=== PATIENT | male | born 1955 | race Caucasian/White ===

== ENCOUNTER 2020-01-11 06:57 | Emergency (ER) | payer MEDICARE ==
[~2020-01-11] VITALS: Ht 175.3 cm; Wt 112.0 kg
[2020-01-11] MEDS ORDERED: IV NORMAL SALINE 1000ML BAG 1,000 ML IV SCH (07:25)
[2020-01-11] MEDS ORDERED: KETOROLAC 30 MG/ML VIAL. IVP ONE (07:30)
[2020-01-11] MEDS ORDERED: ONDANSETRON PF 4 MG/2 ML VIAL. IVP ONE (07:30)
[2020-01-11 07:54] LABS: CALCIUM 9.6 mg/dL (8.5-10.1); CREATININE 1.2 mg/dL (0.7-1.3); GFR 60.6; POTASSIUM 3.9 mmol/L (3.5-5.1)
[2020-01-11 07:59] LABS: ALBUMIN 3.7 g/dL (3.4-5.0); TOTAL BILIRUBIN 0.9 mg/dL (0.2-1.0); TOTAL PROTEIN 7.5 g/dL (6.4-8.2)
[2020-01-11 08:01] LABS: BASO # 0.1 x10^3/uL (0.0-0.2); BASO % 1 % (0-3); EOS % 0 % (0-3); HEMOGLOBIN 15.8 g/dL (13.0-17.5); LYMPH # 1.5 x10^3/uL (1.0-4.8); LYMPH % 9 % (24-48); MEAN CORPUSCULAR HEMOGLOBIN 29 pg (25-35); MEAN CORPUSCULAR HGB CONC 32 g/dL (31-37); MEAN CORPUSCULAR VOLUME 89 fL (79-100); MONO # 0.7 x10^3/uL (0.0-1.1); MONO % 5 % (0-9); NEUT % 86 % (31-73); PLATELET COUNT 242 x10^3/uL (140-400); RED BLOOD COUNT 5.52 x10^6/uL (4.30-5.70); RED CELL DISTRIBUTION WIDTH 15.9 % (11.5-14.5); WHITE BLOOD COUNT 16.3 x10^3/uL (4.0-11.0)
--- NOTE | 2020-01-11 08:09 | PHYS DOC ---
Past Medical History Past Medical History: A-Fib, Asthma, Diabetes-Type II, High Cholesterol, Hypertension, Kidney Stone Past Surgical History: Other Additional Past Surgical Histo: L Rotator Cuff, HERNIA, EYE SOCKET REPAIR Smoking Status: Never Smoker Alcohol Use: Rarely Drug Use: None General Adult EDM: Chief Complaint: ABDOMINAL PAIN HPI: HPI: Patient is a 65 year old male with history of hypertension, dyslipidemia, diabetes mellitus, atrial fibrillation, kidney stone who presents with complaining of "I have a kidney stone". Patient complaining of sudden onset of left flank pain with radiation to left lower quadrant and suprapubic area since 0300 AM as constant sharp pain that getting better and worse. Patient rated his pain 10/10 and complaining of nausea without vomiting, fever and chills, diarrhea and constipation, dysuria. Patient complaining of dark-colored urine and he states he had the same pain with previous episode of kidney stone. Patient states he worked outside and vomited yesterday and had one episode of loose stool last night. Review of Systems: Review of Systems: Constitutional: Denies fever or chills. [] Eyes: Denies change in visual acuity. [] HENT: Denies nasal congestion or sore throat. [] Respiratory: Denies cough or shortness of breath. [] Cardiovascular: Denies chest pain or edema. [] GI: Reports abdominal pain, nausea, denies vomiting, bloody stools or diarrhea. [] : Denies dysuria. [] Musculoskeletal: Denies back pain or joint pain. [] Integument: Denies rash. [] Neurologic: Denies headache, focal weakness or sensory changes. [] Endocrine: Denies polyuria or polydipsia. [] Lymphatic: Denies swollen glands. [] Psychiatric: Denies depression or anxiety. [] Heart Score: Risk Factors: Risk Factors: DM, Current or recent (<one month) smoker, HTN, HLP, family history of CAD, obesity. Risk Scores: Score 0 - 3: 2.5% MACE over next 6 weeks - Discharge Home Score 4 - 6: 20.3% MACE over next 6 weeks - Admit for Clinical Observation Score 7 - 10: 72.7% MACE over next 6 weeks - Early Invasive Strategies Current Medications: Current Medications Medications (Trade) Dose Ordered Sig/Filippo Start Time Stop Time Status Last Admin Dose Admin Ketorolac Tromethamine (Toradol 30mg Vial) 30 mg 1X ONCE 01/11/20 07:30 01/11/20 07:37 DC 01/11/20 07:46 30 MG Ondansetron HCl (Zofran) 4 mg 1X ONCE 01/11/20 07:30 01/11/20 07:37 DC 01/11/20 07:46 4 MG Sodium Chloride 1,000 ml @ 1,000 mls/hr Q1H 01/11/20 07:25 01/11/20 08:24 01/11/20 07:45 1,000 MLS/HR Allergies: Allergies: Allergies Coded Allergies Type Severity Reaction Last Updated Verified No Known Drug Allergies 02/09/15 No Physical Exam: PE: Constitutional: Well developed, well nourished, mild distress, non-toxic appearance. [] HENT: Normocephalic, atraumatic. Eyes: PERRLA, EOMI, conjunctiva normal, no discharge. [] Neck: Normal range of motion, no tenderness, supple, no stridor. [] Cardiovascular:Heart rate regular rhythm, no murmur [] Lungs & Thorax: Bilateral breath sounds clear to auscultation [] Abdomen: Bowel sounds normal, soft, left lower quadrant guarding, no tenderness, no masses, no pulsatile masses. [] Skin: Warm, dry, no erythema, no rash. [] Back: No tenderness, no CVA tenderness. [] Extremities: No tenderness, no cyanosis, no clubbing, ROM intact, no edema. [] Neurologic: Alert and oriented X 3, no focal deficits noted. [] Psychologic: Affect normal, judgement normal, mood normal. [] Current Patient Data: Labs: Laboratory Tests Test 01/11/20 07:20 White Blood Count 16.3 x10^3/uL (4.0-11.0) H Red Blood Count 5.52 x10^6/uL (4.30-5.70) Hemoglobin 15.8 g/dL (13.0-17.5) Hematocrit 49.0 % (39.0-53.0) Mean Corpuscular Volume 89 fL (79-100) Mean Corpuscular Hemoglobin 29 pg (25-35) Mean Corpuscular Hemoglobin Concent 32 g/dL (31-37) Red Cell Distribution Width 15.9 % (11.5-14.5) H Platelet Count 242 x10^3/uL (140-400) Neutrophils (%) (Auto) 86 % (31-73) H Lymphocytes (%) (Auto) 9 % (24-48) L Monocytes (%) (Auto) 5 % (0-9) Eosinophils (%) (Auto) 0 % (0-3) Basophils (%) (Auto) 1 % (0-3) Neutrophils # (Auto) 14.0 x10^3/uL (1.8-7.7) H Lymphocytes # (Auto) 1.5 x10^3/uL (1.0-4.8) Monocytes # (Auto) 0.7 x10^3/uL (0.0-1.1) Eosinophils # (Auto) 0.0 x10^3/uL (0.0-0.7) Basophils # (Auto) 0.1 x10^3/uL (0.0-0.2) Platelet Estimate Pending Sodium Level 139 mmol/L (136-145) Potassium Level 3.9 mmol/L (3.5-5.1) Chloride Level 102 mmol/L (98-107) Carbon Dioxide Level 26 mmol/L (21-32) Anion Gap 11 (6-14) Blood Urea Nitrogen 25 mg/dL (8-26) Creatinine 1.2 mg/dL (0.7-1.3) Estimated GFR (Cockcroft-Gault) 60.6 BUN/Creatinine Ratio 21 (6-20) H Glucose Level 167 mg/dL (70-99) H Calcium Level 9.6 mg/dL (8.5-10.1) Total Bilirubin 0.9 mg/dL (0.2-1.0) Aspartate Amino Transferase (AST) 16 U/L (15-37) Alanine Aminotransferase (ALT) 16 U/L (16-63) Alkaline Phosphatase 71 U/L (46-116) Total Protein 7.5 g/dL (6.4-8.2) Albumin 3.7 g/dL (3.4-5.0) Albumin/Globulin Ratio 1.0 (1.0-1.7) Lipase 126 U/L (73-393) Laboratory Tests 01/11/20 07:20 Laboratory Tests 01/11/20 07:20 Vital Signs: Vital Signs Date Time Temp Pulse Resp B/P (MAP) Pulse Ox O2 Delivery O2 Flow Rate FiO2 01/11/20 07:10 97.4 85 18 164/88 (113) 97 Room Air 97.4 EKG: EKG: [] Radiology/Procedures: Radiology/Procedures: [facility] [address] [place] [address] IMAGING REPORT Signed PATIENT: MORENA FIORE ACCOUNT: [id number] : 1955 LOCATION: ER AGE: 65 SEX: M EXAM STATUS: REG ER ORD. PHYSICIAN: AXEL PERALTA MD REASON: Left flank pain HX OF LEFT SIDED KIDNEY STONES PROCEDURE: CT ABDOMEN PELVIS WO CONTRAST CT ABDOMEN PELVIS WO CONTRAST History: Left flank pain. Technique: Noncontrast examination of the abdomen and pelvis. Coronal and sagittal reconstructions were performed. Exposure: One or more of the following individualized dose reduction techniques were utilized for this examination: 1. Automated exposure control 2. Adjustment of the mA and/or kV according to patient size 3. Use of iterative reconstruction technique. Comparison: None Findings: Lower chest: No consolidation or pleural effusion. Abdomen and pelvis: The liver, spleen, pancreas and gallbladder are unremarkable. No biliary ductal dilatation. 1.2 x 1.0 cm right adrenal nodule with decreased Hounsfield units compatible with adrenal adenoma and peripheral calcification. 1.5 x 1.4 cm left adrenal nodule with decreased Hounsfield units compatible with adrenal adenoma. 0.6 x 0.4 cm left proximal ureteral obstructing calculus contributing to mild hydronephrosis. Left perinephric and periureteral fat stranding. Additional nonobstructing intrarenal calculus measures 0.7 cm. No right hydronephrosis. Incidentally noted right superior exophytic renal cyst measures 3.1 x 3.0 cm. No follow-up imaging is recommended per consensus recommendations based on imaging criteria for the cyst. Decompressed urinary bladder. Colonic diverticulosis. Normal appendix. No evidence of bowel obstruction. Right lateral abdominal wall intramuscular lipoma. Mild atheromatous plaque throughout the nonaneurysmal abdominal aorta and branch vessels. No pathologic lymphadenopathy. No ascites. Bones: Grade 1 anterolisthesis L4 on L5 due to chronic bilateral L5 spondylolysis. Multilevel lumbar spondylosis most prominent L4-5. Impression: 1. 6 mm left proximal ureteral obstructing calculus contributing to mild hydronephrosis with perinephric/periureteral fat stranding. 2. Additional nonobstructing left intrarenal calculus. 3. Bilateral adrenal adenomas. No follow-up imaging is recommended per consensus recommendations based on imaging criteria. Electronically signed by: Phuc Fregoso DO (01/11/2020 8:19 AM) [id number] Course & Med Decision Making: Course & Med Decision Making Pertinent Labs and Imaging studies reviewed. (See chart for details) Evaluation of patient inertial 65-year-old male patient with history of previous episode of kidney stone presented with complaining of left flank pain and nausea. Patient had a stable vital sign and treated with IV fluids, Zofran, Toradol with improvement of his pain. CT showed 6 mm stone in the left proximal ureter. Labs showed leukocytosis and UTI and patient treated with Rocephin in ER. Patient was advised to increase fluid intake and strain all of his urine and follow-up with urology at [facility]. I've spoken with the patient and/or caregivers. I've explained the patient's condition, diagnosis and treatment plan based on information available to me at this time. I've answered the patient's and/or caregivers questions and addressed any concerns. The patient and/or caregivers have a good understanding the patient's diagnosis, condition and treatment plan as can be expected at this point. Vital signs have been stabilized. The patient's condition is stable for discharge from the emergency department. The patient will pursue further outpatient evaluation with her primary care provider or other designated consulting physician as outlined in the discharge instructions. Patient and/or caregivers are agreeable to this plan of care and follow-up instructions have been explained in detail. The patient and/or caregivers have received these instructions in written format and expressed understanding of these discharge instructions. The patient and her caregivers are aware that if any significant change in condition or worsening of symptoms should prompt him to immediately return to this of the closest emergency department. If an emergent department is not readily available I would encourage him to call 911. Lisa Disclaimer: Lisa Disclaimer: This electronic medical record was generated, in whole or in part, using a voice recognition dictation system. Departure Departure Impression: Primary Impression: Renal colic on left side Additional Impressions: Ureterolithiasis Urinary tract infection Qualified Codes: N39.0 - Urinary tract infection, site not specified Disposition: HOME, SELF-CARE (At 09) Condition: IMPROVED Referrals: JAYSHREE DENNIS (PCP) Patient Instructions: Diet for Kidney Stones, Kidney Stones Additional Instructions: Drink plenty of liquids Follow-up with your primary care physician in 3-5 days Return to ER if not getting better Strain all of your urine Follow-up with a urologist physician at [facility] Thank you for visiting [facility]. We appreciate you trusting us with your care. If any additional problems come up don't hesitate to return to visit us. Please follow up with your primary care provider so they can plan additional care if needed and know about the problem that you had. If symptoms worsen come back to the Emergency Department. Any concerning symptoms that start such as chest pain, shortness of air, weakness or numbness on one side of the b kacey, running high fevers or any other concerning symptoms return to the ER. Scripts Hydrocodone/Apap 5-325 (NORCO 5-325 TABLET) 1 Each Tablet 1 TAB PO PRN Q6HRS PRN for PAIN, #20 TAB 0 Refills Prov: AXEL PERALTA MD 01/11/20 Tamsulosin Hcl (FLOMAX) 0.4 Mg Cap.er.24h 1 CAP PO DAILY, #14 CAP 0 Refills Prov: AXEL PERALTA MD 01/11/20 Ciprofloxacin Hcl (CIPRO) 250 Mg Tablet 1 TAB PO BID for infection, #14 TAB Prov: AXEL PERALTA MD 01/11/20 AXEL PERALTA MD Jan 11, 2020 08:09
--- NOTE | 2020-01-11 08:22 | RAD ---
CT ABDOMEN PELVIS WO CONTRAST History: Left flank pain. Technique: Noncontrast examination of the abdomen and pelvis. Coronal and sagittal reconstructions were performed. Exposure: One or more of the following individualized dose reduction techniques were utilized for this examination: 1. Automated exposure control 2. Adjustment of the mA and/or kV according to patient size 3. Use of iterative reconstruction technique. Comparison: None Findings: Lower chest: No consolidation or pleural effusion. Abdomen and pelvis: The liver, spleen, pancreas and gallbladder are unremarkable. No biliary ductal dilatation. 1.2 x 1.0 cm right adrenal nodule with decreased Hounsfield units compatible with adrenal adenoma and peripheral calcification. 1.5 x 1.4 cm left adrenal nodule with decreased Hounsfield units compatible with adrenal adenoma. 0.6 x 0.4 cm left proximal ureteral obstructing calculus contributing to mild hydronephrosis. Left perinephric and periureteral fat stranding. Additional nonobstructing intrarenal calculus measures 0.7 cm. No right hydronephrosis. Incidentally noted right superior exophytic renal cyst measures 3.1 x 3.0 cm. No follow-up imaging is recommended per consensus recommendations based on imaging criteria for the cyst. Decompressed urinary bladder. Colonic diverticulosis. Normal appendix. No evidence of bowel obstruction. Right lateral abdominal wall intramuscular lipoma. Mild atheromatous plaque throughout the nonaneurysmal abdominal aorta and branch vessels. No pathologic lymphadenopathy. No ascites. Bones: Grade 1 anterolisthesis L4 on L5 due to chronic bilateral L5 spondylolysis. Multilevel lumbar spondylosis most prominent L4-5. Impression: 1. 6 mm left proximal ureteral obstructing calculus contributing to mild hydronephrosis with perinephric/periureteral fat stranding. 2. Additional nonobstructing left intrarenal calculus. 3. Bilateral adrenal adenomas. No follow-up imaging is recommended per consensus recommendations based on imaging criteria. Electronically signed by: Phuc Fregoso DO (01/11/2020 8:19 AM) [id number]
[2020-01-11 08:36] LABS: % BANDS 1 % (0-9); % BASOS 1 % (0-3); % LYMPHS 13 % (24-48); % MONOS 3 % (0-10); % SEGS 82 % (35-66)
[2020-01-11 08:37] LABS: PLT ESTIMATE ADEQUATE (ADEQUATE)
[2020-01-11 08:52] LABS: BILIRUBIN,URINE NEGATIVE (NEG); CLARITY,URINE HAZY; COLOR,URINE AMBER; NITRITE,URINE POSITIVE (NEG); PROTEIN,URINE 30 mg/dL (NEG-TRACE); UROBILINOGEN,URINE 0.2 mg/dL (0.2 mg/dL); WBC,URINE >40 /HPF (0-4)
[2020-01-11 08:53] LABS: BACTERIA,URINE MANY /HPF (0-FEW); HYALINE CASTS, URINE FEW /HPF; SQUAMOUS EPITHELIAL CELL,UR OCC /LPF
[2020-01-11 09:00] VITALS: BP 142/86
[2020-01-11] MEDS ORDERED: cefTRIAXone IV Push 1 GM VIAL. IVP ONE (09:00)
[2020-01-11] MEDS ORDERED: HYDR-3164 PO (09:08)
[2020-01-11] MEDS ORDERED: TAMS0.4C97 PO (09:08)
[2020-01-11] MEDS ORDERED: CIPR250T30 PO (09:08)
== END 2020-01-11 09:18 | disposition home or self-care (01) ==
LOC: ER 06:57
DX: N13.2 Hydronephrosis with renal and ureteral calculous obstruction (principal); N39.0 Urinary tract infection, site not specified; R19.7 Diarrhea, unspecified; N23 Unspecified renal colic; I48.20 Chronic atrial fibrillation, unspecified; J45.909 Unspecified asthma, uncomplicated; E11.9 Type 2 diabetes mellitus without complications; E78.00 Pure hypercholesterolemia, unspecified; I10 Essential (primary) hypertension; Z87.442 Personal history of urinary calculi; Z98.890 Other specified postprocedural states
CPT/HCPCS: 36415; 74176; 80053; 81001; 83690; 85007; 85025; 87086; 87186; 96361; 96374; 96375; 99285; J0696; J1885; J2405; J7030

== ENCOUNTER 2021-01-12 11:25 | Emergency (ER) | payer MEDICARE ==
[~2021-01-12] VITALS: Ht 175.3 cm; Wt 112.7 kg
[~2021-01-12 11:25] MED LIST: CIPR250T30 PO; HYDR-3164 PO; TAMS0.4C97 PO
--- NOTE | 2021-01-12 12:00 | ED.ADGEN ---
Past Medical History Past Medical History: A-Fib, Asthma, Diabetes-Type II, High Cholesterol, Hypertension, Kidney Stone Past Surgical History: Other Additional Past Surgical Histo: L Rotator Cuff, HERNIA, EYE SOCKET REPAIR Smoking Status: Never Smoker Alcohol Use: Rarely Drug Use: None General Adult EDM: Chief Complaint: MULTIPLE COMPLAINTS HPI: HPI: Patient is a 66 year old male coming in for multiple complaints. Patient states that he has had swelling in bilateral hands and lower forearms for 2 days. Patient states he had lab drawn the day prior to the swelling. He states he was having his A1c checked and initially had stuck in his right AC when they are able to get blood, was able to draw blood from his left AC. Patient states there was only 1 attempt on the right and one accompanying left. He states there is no prolonged tourniquet time. Patient denies any swelling of lower extremities. Patient also states he has had foul-smelling urine for months. Was told to drink more water which she has been doing. Has noticed some increased frequency in urination. This morning noted blood in his urine, denies any clots. Patient states he has a history of a known kidney stone in his kidney has not had any problems with it. Denies any fevers, vomiting, diarrhea. States he has normal p.o. intake. Has history of diabetes, but has not been checking his blood sugars. Review of Systems: Review of Systems: All other systems within normal limits except for as noted in the HPI Current Medications: Current Medications Medications (Trade) Dose Ordered Sig/Filippo Start Time Stop Time Status Last Admin Dose Admin Ceftriaxone Sodium (Rocephin) 1 gm 1X ONCE 01/12/21 13:30 01/12/21 13:31 DC 01/12/21 14:00 1 GM Ondansetron HCl (Zofran) 4 mg 1X ONCE 01/12/21 14:15 01/12/21 14:16 DC 01/12/21 14:09 4 MG Allergies: Allergies: Allergies Coded Allergies Type Severity Reaction Last Updated Verified No Known Drug Allergies 02/09/15 No Physical Exam: PE: Constitutional: Well developed, well nourished, no acute distress, non-toxic appearance. [] HENT: Normocephalic, atraumatic, bilateral external ears normal, nose normal. [] Eyes: PERRLA, conjunctiva normal, no discharge. [] Neck: No rigidity, supple, no stridor. [] Cardiovascular: Regular rate and rhythm, 2-second cap refill [] Lungs & Thorax: Non labored symmetric respirations, no tachypnea or respiratory distress [] Abdomen: Soft, nondistended. Skin: Warm, dry, no erythema, no rash. [] Back: Unremarkable Extremities: No deformities, range of motion grossly intact, no lower extremity edema. Bilateral hands and distal forearm swelling, hematoma in left AC, tenderness on ulnar side near her wrist. [] Neurologic: Alert and oriented X 3, no focal deficits noted. [] Psychologic: Affect normal, judgement normal, mood normal. [] Current Patient Data: Labs: Laboratory Tests Test 01/12/21 11:38 01/12/21 11:55 01/12/21 12:50 Glucose (Fingerstick) 113 mg/dL (70-99) H White Blood Count 10.8 x10^3/uL (4.0-11.0) Red Blood Count 5.50 x10^6/uL (4.30-5.70) Hemoglobin 16.0 g/dL (13.0-17.5) Hematocrit 47.6 % (39.0-53.0) Mean Corpuscular Volume 87 fL (79-100) Mean Corpuscular Hemoglobin 29 pg (25-35) Mean Corpuscular Hemoglobin Concent 34 g/dL (31-37) Red Cell Distribution Width 15.8 % (11.5-14.5) H Platelet Count 205 x10^3/uL (140-400) Neutrophils (%) (Auto) 73 % (31-73) Lymphocytes (%) (Auto) 17 % (24-48) L Monocytes (%) (Auto) 9 % (0-9) Eosinophils (%) (Auto) 1 % (0-3) Basophils (%) (Auto) 1 % (0-3) Neutrophils # (Auto) 7.9 x10^3/uL (1.8-7.7) H Lymphocytes # (Auto) 1.8 x10^3/uL (1.0-4.8) Monocytes # (Auto) 1.0 x10^3/uL (0.0-1.1) Eosinophils # (Auto) 0.1 x10^3/uL (0.0-0.7) Basophils # (Auto) 0.1 x10^3/uL (0.0-0.2) Erythrocyte Sedimentation Rate 20 (0-15) H Sodium Level 141 mmol/L (136-145) Potassium Level 4.1 mmol/L (3.5-5.1) Chloride Level 105 mmol/L (98-107) Carbon Dioxide Level 27 mmol/L (21-32) Anion Gap 9 (6-14) Blood Urea Nitrogen 21 mg/dL (8-26) Creatinine 0.9 mg/dL (0.7-1.3) Estimated GFR (Cockcroft-Gault) 84.2 BUN/Creatinine Ratio 23 (6-20) H Glucose Level 108 mg/dL (70-99) H Calcium Level 9.0 mg/dL (8.5-10.1) Phosphorus Level 3.4 mg/dL (2.6-4.7) Magnesium Level 1.8 mg/dL (1.8-2.4) Total Bilirubin 0.9 mg/dL (0.2-1.0) Aspartate Amino Transferase (AST) 16 U/L (15-37) Alanine Aminotransferase (ALT) 17 U/L (16-63) Alkaline Phosphatase 75 U/L (46-116) Troponin I Quantitative < 0.017 ng/mL (0.000-0.055) C-Reactive Protein, Quantitative 141.0 mg/L (0-3.3) H SL-Gaz-R-Type Natriuretic Peptide 764 pg/mL (0-124) H Total Protein 7.6 g/dL (6.4-8.2) Albumin 3.3 g/dL (3.4-5.0) L Albumin/Globulin Ratio 0.8 (1.0-1.7) L Thyroid Stimulating Hormone (TSH) 1.980 uIU/mL (0.358-3.74) Urine Collection Type Void Urine Color [place] Urine Clarity Clear Urine pH 5.5 (<5.0-8.0) Urine Specific [place] 1.025 (1.000-1.030) Urine Protein 100 mg/dL (NEG-TRACE) Urine Glucose (UA) Negative mg/dL (NEG) Urine Ketones (Stick) Negative mg/dL (NEG) Urine Blood Negative (NEG) Urine Nitrite Positive (NEG) Urine Bilirubin Negative (NEG) Urine Urobilinogen Dipstick 1.0 mg/dL (0.2 mg/dL) Urine Leukocyte Esterase Moderate (NEG) Urine RBC 0 /HPF (0-2) Urine WBC >40 /HPF (0-4) Urine Squamous Epithelial Cells Many /LPF Urine Bacteria Many /HPF (0-FEW) Urine Mucus Mod /LPF Laboratory Tests 01/12/21 11:55 Laboratory Tests 01/12/21 11:55 Vital Signs: Vital Signs Date Time Temp Pulse Resp B/P (MAP) Pulse Ox O2 Delivery O2 Flow Rate FiO2 01/12/21 14:25 68 20 136/72 (93) 95 Room Air 01/12/21 11:30 97.9 97.9 EKG: EKG: []Atrial flutter first baseline artifact, 79 bpm, normal axis, no ST elevation or depression. Heart Score: C/O Chest Pain: No Risk Factors: Risk Factors: DM, Current or recent (<one month) smoker, HTN, HLP, family history of CAD, obesity. Risk Scores: Score 0 - 3: 2.5% MACE over next 6 weeks - Discharge Home Score 4 - 6: 20.3% MACE over next 6 weeks - Admit for Clinical Observation Score 7 - 10: 72.7% MACE over next 6 weeks - Early Invasive Strategies Radiology/Procedures: Radiology/Procedures: EXAMINATION: US UPPER EXTREMITY VENOUS DUPLEX BILAT, 01/12/2021 12:53 PM CLINICAL INDICATION: Bilateral hand swelling for 3 days after blood draw COMPARISON: None Available. PROCEDURE: Multiple grayscale, color Doppler and spectral Doppler sonographic images of bilateral upper extremities were obtained. FINDINGS: There is no evidence of deep venous thrombosis in either upper extremity. The internal jugular, subclavian, axillary, brachial, cephalic, radial, and ulnar veins are patent. The veins demonstrate normal compressibility and color and spectral Doppler flow. IMPRESSION: No evidence of deep venous thrombosis in either upper extremity. [] Course & Med Decision Making: Course & Med Decision Making Pertinent Labs and Imaging studies reviewed. (See chart for details) [] Dragon Disclaimer: Dragon Disclaimer: This electronic medical record was generated, in whole or in part, using a voice recognition dictation system. Departure Departure Impression: Primary Impression: Hand edema Additional Impression: UTI (urinary tract infection) Disposition: 01 DC HOME SELF CARE/HOMELESS Condition: STABLE Referrals: JAYSHREE DENNIS (PCP) Patient Instructions: Edema Additional Instructions: Your symptoms are concerning for a syndrome called remitting seronegative symmetrical synovitis with pitting edema. This is a diagnosis of exclusion, you need to follow-up with your primary care provider to rule out other inflammatory autoimmune disorders such as rheumatoid arthritis. We will start you on a dose of low-dose steroids to see how the swelling in your hands responsed. Please note that your blood sugars will be elevated during this time due to the steroids. He did test positive for urinary tract infection, only take a complete course of antibiotics even if your symptoms improve. Scripts Prednisone (PREDNISONE) 5 Mg Tablet 15 MG PO DAILY for steroid for 14 Days, #42 TAB Prov: GLENYS CROFT MD 01/12/21 Cephalexin (CEPHALEXIN) 500 Mg Tablet 1 TAB PO BID for antibiotic for 7 Days, #14 TAB Prov: GLENYS CROFT MD 01/12/21 Problem Qualifiers GLENYS CROFT MD Jan 12, 2021 12:00
[2021-01-12 12:09] LABS: BASO # 0.1 x10^3/uL (0.0-0.2); BASO % 1 % (0-3); EOS # 0.1 x10^3/uL (0.0-0.7); EOS % 1 % (0-3); HEMATOCRIT 47.6 % (39.0-53.0); LYMPH # 1.8 x10^3/uL (1.0-4.8); LYMPH % 17 % (24-48); MEAN CORPUSCULAR HEMOGLOBIN 29 pg (25-35); MEAN CORPUSCULAR HGB CONC 34 g/dL (31-37); MEAN CORPUSCULAR VOLUME 87 fL (79-100); MONO % 9 % (0-9); NEUT # 7.9 x10^3/uL (1.8-7.7); NEUT % 73 % (31-73); PLATELET COUNT 205 x10^3/uL (140-400); RED CELL DISTRIBUTION WIDTH 15.8 % (11.5-14.5); WHITE BLOOD COUNT 10.8 x10^3/uL (4.0-11.0)
[2021-01-12 12:18] LABS: CREATININE 0.9 mg/dL (0.7-1.3); GFR 84.2; POTASSIUM 4.1 mmol/L (3.5-5.1)
[2021-01-12 12:24] LABS: ALBUMIN 3.3 g/dL (3.4-5.0); ALBUMIN/GLOBULIN RATIO 0.8 (1.0-1.7); MAGNESIUM 1.8 mg/dL (1.8-2.4); PHOSPHORUS 3.4 mg/dL (2.6-4.7); TOTAL BILIRUBIN 0.9 mg/dL (0.2-1.0); TOTAL PROTEIN 7.6 g/dL (6.4-8.2)
[2021-01-12 13:07] LABS: BILIRUBIN,URINE NEGATIVE (NEG); CLARITY,URINE CLEAR; COLOR,URINE AMBER; NITRITE,URINE POSITIVE (NEG); PH,URINE 5.5 (<5.0-8.0); PROTEIN,URINE 100 mg/dL (NEG-TRACE)
[2021-01-12 13:18] LABS: BACTERIA,URINE MANY /HPF (0-FEW); RBC,URINE 0 /HPF (0-2); WBC,URINE >40 /HPF (0-4)
[2021-01-12] MEDS ORDERED: cefTRIAXone IV Push 1 GM VIAL. IVP ONE (13:30)
[2021-01-12] MEDS ORDERED: CEPH500T PO (13:37)
[2021-01-12] MEDS ORDERED: PRED5TAB PO (13:37)
[2021-01-12] MEDS ORDERED: ONDANSETRON PF 4 MG/2 ML VIAL. IVP ONE (14:15)
--- NOTE | 2021-01-12 14:16 | RAD ---
EXAMINATION: US UPPER EXTREMITY VENOUS DUPLEX BILAT, 01/12/2021 12:53 PM CLINICAL INDICATION: Bilateral hand swelling for 3 days after blood draw COMPARISON: None Available. PROCEDURE: Multiple grayscale, color Doppler and spectral Doppler sonographic images of bilateral upp er extremities were obtained. FINDINGS: There is no evidence of deep venous thrombosis in either upper extremity. The internal jugu lar, subclavian, axillary, brachial, cephalic, radial, and ulnar veins are patent. The veins demonstr ate normal compressibility and color and spectral Doppler flow. IMPRESSION: No evidence of deep venous thrombosis in either upper extremity. Electronically signed by: Sulma Yanez MD (01/12/2021 2:14 PM) [id number]
[2021-01-12 14:25] VITALS: BP 136/72
--- NOTE | 2021-01-14 07:19 | EKG ---
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
--- NOTE | 2021-01-14 14:02 | VNOTE ---
CALL BACK NOTE CALL BACK Microbiology 01/12/21 Urine Culture - Final, Complete 01/12/21 Antimicrobic Susceptibility - Final, Complete Patient has a positive urine culture, he was put on cephalexin. He appears to be resistant to a lot of antibiotics including the new generation cephalosporins. WALE DAMON APRN Jan 14, 2021 14:02
== END 2021-01-12 14:34 | disposition home or self-care (01) ==
LOC: ER 11:25
DX: N39.0 Urinary tract infection, site not specified (principal); R60.0 Localized edema; I48.20 Chronic atrial fibrillation, unspecified; E11.9 Type 2 diabetes mellitus without complications; J45.909 Unspecified asthma, uncomplicated; I10 Essential (primary) hypertension; Z87.442 Personal history of urinary calculi; Z98.890 Other specified postprocedural states
CPT/HCPCS: 36415; 80053; 81001; 82962; 83735; 83880; 84100; 84443; 84484; 85025; 85651; 86140; 87086; 93970; 96374; 96375; 99285; J0696; J2405; 93005

== ENCOUNTER 2021-03-09 12:42 | Emergency (ER) | payer MEDICARE ==
[~2021-03-09] VITALS: Ht 175.3 cm; Wt 120.4 kg
[~2021-03-09 12:42] MED LIST changes: +CEPH500T PO; +PRED5TAB PO
[2021-03-09] MEDS ORDERED: METOPROLOL IV PUSH 5 MG/5 ML VIAL. IVP ONE ×2 (13:00→13:30)
[2021-03-09] MEDS ORDERED: TAMSULOSIN 0.4 MG CAP.ER.24H. PO ONE (13:00)
[2021-03-09] MEDS ORDERED: MORPHINE SULFATE 10 MG/ML VIAL. IV ONE (13:00)
--- NOTE | 2021-03-09 13:10 | PHYS DOC ---
Past Medical History Past Medical History: A-Fib, Asthma, Diabetes-Type II, High Cholesterol, Hypertension, Kidney Stone Past Surgical History: Other Additional Past Surgical Histo: L Rotator Cuff, HERNIA, EYE SOCKET REPAIR Smoking Status: Never Smoker Alcohol Use: Rarely Drug Use: None General Adult EDM: Chief Complaint: FLANK PAIN HPI: HPI: Patient is a 66 year old male with history of A. fib, hypertension, high cholesterol, diabetes type 2, who presents to the ED today complaining of a sharp 7 out of 10 intermittent left flank pain radiating to the left lower quadrant, symptoms began yesterday. Patient states these are symptoms consistent with his previous kidney stone pain. Denies any vomiting, denies any fever, denies any hematuria Review of Systems: Review of Systems: Constitutional: Denies fever or chills. [] Eyes: Denies change in visual acuity. [] HENT: Denies nasal congestion or sore throat. [] Respiratory: Denies cough or shortness of breath. [] Cardiovascular: Denies chest pain or edema. [] GI: Reports left lower quadrant pain, nausea denies vomiting, bloody stools or diarrhea. [] : Reports left flank pain, denies dysuria Musculoskeletal: Denies back pain or joint pain. [] Integument: Denies rash. [] Neurologic: Denies headache, focal weakness or sensory changes. [] Psychiatric: Denies depression or anxiety. [] Heart Score: C/O Chest Pain: N/A Risk Factors: Risk Factors: DM, Current or recent (<one month) smoker, HTN, HLP, family history of CAD, obesity. Risk Scores: Score 0 - 3: 2.5% MACE over next 6 weeks - Discharge Home Score 4 - 6: 20.3% MACE over next 6 weeks - Admit for Clinical Observation Score 7 - 10: 72.7% MACE over next 6 weeks - Early Invasive Strategies Current Medications: Current Medications Medications (Trade) Dose Ordered Sig/Filippo Start Time Stop Time Status Last Admin Dose Admin Metoprolol Tartrate (Lopressor Vial) 5 mg 1X ONCE 03/09/21 13:00 03/09/21 13:07 DC Morphine Sulfate (Morphine Sulfate) 5 mg 1X ONCE 03/09/21 13:00 03/09/21 13:07 DC Tamsulosin HCl (Flomax) 0.4 mg 1X ONCE 03/09/21 13:00 03/09/21 13:07 DC Allergies: Allergies: Allergies Coded Allergies Type Severity Reaction Last Updated Verified No Known Drug Allergies 02/09/15 No Physical Exam: PE: Constitutional: Obese patient, no acute distress, non-toxic appearance. [] HENT: Normocephalic, atraumatic, bilateral external ears normal, oropharynx mois t, no oral exudates, nose normal. [] Eyes: PERRLA, EOMI, conjunctiva normal, no discharge. [] Neck: Normal range of motion, no tenderness, supple, no stridor. [] Cardiovascular:Heart rate regular rhythm, no murmur [] Lungs & Thorax: Bilateral breath sounds clear to auscultation [] Abdomen: Bowel sounds normal, soft, no tenderness, no masses, no pulsatile masses. [] Skin: Warm, dry, no erythema, no rash. [] Back: No tenderness, slight left CVA tenderness. [] Extremities: No tenderness, no cyanosis, no clubbing, ROM intact, no edema. [] Neurologic: Alert and oriented X 3, normal motor function, normal sensory function, no focal deficits noted. [] Psychologic: Affect normal, judgement normal, mood normal. [] Current Patient Data: Vital Signs: Vital Signs Date Time Temp Pulse Resp B/P (MAP) Pulse Ox O2 Delivery O2 Flow Rate FiO2 03/09/21 12:51 98.9 84 24 170/116 (134) 97 Room Air 98.9 EKG: EK interpreted by Dr. Mendoza alvarez with a heart rate of 81 no STEMI [] Radiology/Procedures: Radiology/Procedures: []PROCEDURE: CT ABDOMEN PELVIS WO CONTRAST EXAM: Abdomen and pelvis CT without intravenous contrast. HISTORY: Flank pain. Nephrolithiasis. TECHNIQUE: Computed tomographic images of the abdomen and pelvis were obtained without intravenous contrast. Multiplanar reformatting was performed. *One or more of the following individualized dose reduction techniques were utilized for this examination: 1. Automated exposure control. 2. Adjustment of the mA and/or kV according to patient size. 3. Use of iterative reconstruction technique. COMPARISON: 01/11/2020. FINDINGS: Evaluation of the lower thorax demonstrates mild emphysema. There is no infiltrate or pleural effusion. There is mild hepatomegaly and hepatic steatosis. The gallbladder, pancreas, and stomach are unremarkable. There are bilateral adrenal nodules, measuring 1.5 cm on the right and 1.6 cm on the left. There is calcification associated with the right adrenal nodule likely due to the sequela of prior hemorrhage. There is moderate left hydronephrosis and proximal hydroureter secondary to an obstructing 4 mm stone within the proximal ureter. There is associated perinephric and periureteral stranding. There is a simple appearing cyst within the upper pole the right kidney measuring 3.3 cm. The bladder is nearly empty. There are prostate calcifications. There is no appendicitis. There is no bowel structure in. There is colonic diverticulosis. There is no diverticulitis. The aorta is normal in caliber. There is no lymphadenopathy. There are degenerative changes involving the spine. There is grade 1 anterolisthesis with associated pars defects and advanced degenerative change at L4-L5. IMPRESSION: 1. Moderate left hydronephrosis and proximal hydroureter with associated perinephric and perirenal stranding due to an obstructing 4 mm stone within the proximal ureter. 2. Hepatomegaly and hepatic steatosis. 3. Colonic diverticulosis. 4. Stable bilateral adrenal nodules. The interval stability favors benign adenomas. MRI can be performed for catheterization if there is clinical concern. 5. Simple appearing right renal cyst. Follow up is not routinely performed for simple cysts. Electronically signed by: Raven Jacques MD (03/09/2021 2:09 PM) [id number] DICTATED and SIGNED BY: RAVEN JACQUES MD DATE: 03/09/21 [id number] 0 Course & Med Decision Making: Course & Med Decision Making Pertinent Labs and Imaging studies reviewed. (See chart for details) This is a 66-year-old male patient with history of kidney stones presenting today with flank pain since yesterday, pain radiates to the left lower quadrant. Urine positive for infection, CBC with a WBC of 16.1 and a left shift with bandemia. CMP with no acute findings. Vitals on arrival to the ED temperature 98.9 heart rate 84, respiration 24 on room air, blood pressure 1 70/116, O2 sats 97%. Patient was in A. fib on arrival to the ED he is on metoprolol and had not taken it, dose was given in the ED and he converted back to sinus rhythm, CT of the abdomen and pelvic was noted for left 4 mm proximal ureter stone with moderate hydronephrosis and hydroureter. Also noted for liver stenosis, divert iculosis, adrenal noodles and right renal cyst. This hospital does not have a urologist. Informed patient we will transfer him to the hospital with a urologist. Patient refused, he states he has animals at home that he must go take care of. He states he will follow-up with a urologist at home. He was given Rocephin, Flomax and IV fluids in the ED. Pain is well controlled. Also given Zofran. Dragon Disclaimer: Dragon Disclaimer: This electronic medical record was generated, in whole or in part, using a voice recognition dictation system. Departure Departure Impression: Primary Impression: Kidney stone Additional Impressions: Acute pyelonephritis Leukocytosis Qualified Codes: D72.829 - Elevated white blood cell count, unspecified Disposition: 01 HOME / SELF CARE / HOMELESS Condition: STABLE Referrals: JAYSHREE DENNIS (PCP) Follow-up with the urologist of your chest next week Patient Instructions: Kidney Stones, [id number], Leukocytosis, Pyelonephritis, Adult, [id number] Additional Instructions: You were evaluated in the emergency room and noted to have a kidney stone with kidney infection. We put on antibiotics, ensure you complete them. Follow-up with a urologist and primary care doctor next week, come back to the ED at any point symptoms worsen. Scripts Hydrocodone Bit/Acetaminophen (HYDROCODONE-APAP 7.5-325 ) 1 Tab Tablet 1 TAB PO PRN Q6HRS PRN for PAIN, #20 TAB 0 Refills Prov: NELSONWALE MARIE 03/09/21 Ondansetron (ONDANSETRON ODT) 4 Mg Tab.rapdis 1 TAB PO PRN Q6-8HRS, #16 TAB Prov: NELSONWALE IP LITIGATION ASSOCIATE 03/09/21 Tamsulosin Hcl (FLOMAX) 0.4 Mg Cap.er.24h 1 CAP PO DAILY, #7 CAP 0 Refills Prov: JONASCHIWALE Belcher IP LITIGATION ASSOCIATE 03/09/21 Ciprofloxacin Hcl (CIPRO) 500 Mg Tablet 1 TAB PO BID for 7 Days, #14 TAB 0 Refills Prov: NELSONWALE Saul DOYLEN 03/09/21 ALLANWALE Belcher MARIE Mar 09, 2021 13:10
[2021-03-09 13:15] LABS: BASO # 0.1 x10^3/uL (0.0-0.2); BASO % 1 % (0-3); EOS % 0 % (0-3); HEMATOCRIT 44.9 % (39.0-53.0); HEMOGLOBIN 15.2 g/dL (13.0-17.5); LYMPH # 1.1 x10^3/uL (1.0-4.8); LYMPH % 7 % (24-48); MEAN CORPUSCULAR HEMOGLOBIN 30 pg (25-35); MEAN CORPUSCULAR HGB CONC 34 g/dL (31-37); MEAN CORPUSCULAR VOLUME 87 fL (79-100); MONO # 1.2 x10^3/uL (0.0-1.1); MONO % 7 % (0-9); NEUT # 13.7 x10^3/uL (1.8-7.7); NEUT % 85 % (31-73); PLATELET COUNT 172 x10^3/uL (140-400); RED BLOOD COUNT 5.14 x10^6/uL (4.30-5.70); RED CELL DISTRIBUTION WIDTH 15.9 % (11.5-14.5); WHITE BLOOD COUNT 16.1 x10^3/uL (4.0-11.0)
[2021-03-09 13:17] LABS: BILIRUBIN,URINE NEGATIVE (NEG); CLARITY,URINE CLEAR; COLOR,URINE AMBER; NITRITE,URINE POSITIVE (NEG); PH,URINE 5.5 (<5.0-8.0); PROTEIN,URINE 100 mg/dL (NEG-TRACE)
[2021-03-09 13:22] LABS: HYALINE CASTS, URINE FEW /HPF
[2021-03-09 13:23] LABS: BACTERIA,URINE MANY /HPF (0-FEW); RBC,URINE 0 /HPF (0-2); WBC,URINE 20-40 /HPF (0-4)
[2021-03-09 13:23] LABS: CALCIUM 9.1 mg/dL (8.5-10.1); CREATININE 1.1 mg/dL (0.7-1.3); GFR 66.8; POTASSIUM 4.1 mmol/L (3.5-5.1)
[2021-03-09 13:28] LABS: ALBUMIN 3.4 g/dL (3.4-5.0); ALBUMIN/GLOBULIN RATIO 0.8 (1.0-1.7); TOTAL PROTEIN 7.6 g/dL (6.4-8.2)
[2021-03-09] MEDS ORDERED: ONDANSETRON PF 4 MG/2 ML VIAL. IVP ONE (13:30)
[2021-03-09 13:37] LABS: % BANDS 16 % (0-9); % LYMPHS 7 % (24-48); % MONOS 7 % (0-10); % SEGS 70 % (35-66); PLT ESTIMATE ADEQUATE (ADEQUATE)
--- NOTE | 2021-03-09 14:11 | RAD ---
EXAM: Abdomen and pelvis CT without intravenous contrast. HISTORY: Flank pain. Nephrolithiasis. TECHNIQUE: Computed tomographic images of the abdomen and pelvis were obtained without intravenous co ntrast. Multiplanar reformatting was performed. *One or more of the following individualized dose reduction techniques were utilized for this examina tion: 1. Automated exposure control. 2. Adjustment of the mA and/or kV according to patient size. 3. Use of iterative reconstruction technique. COMPARISON: 01/11/2020. FINDINGS: Evaluation of the lower thorax demonstrates mild emphysema. There is no infiltrate or pleur al effusion. There is mild hepatomegaly and hepatic steatosis. The gallbladder, pancreas, and stomach are unremarkable. There are bilateral adrenal nodules, measuring 1.5 cm on the right and 1.6 cm on t he left. There is calcification associated with the right adrenal nodule likely due to the sequela of prior hemorrhage. There is moderate left hydronephrosis and proximal hydroureter secondary to an obstructing 4 mm stone within the proximal ureter. There is associated perinephric and periureteral stranding. There is a s imple appearing cyst within the upper pole the right kidney measuring 3.3 cm. The bladder is nearly e mpty. There are prostate calcifications. There is no appendicitis. There is no bowel structure in. There is colonic diverticulosis. There is n o diverticulitis. The aorta is normal in caliber. There is no lymphadenopathy. There are degenerative changes involving the spine. There is grade 1 anterolisthesis with associated pars defects and advan justino degenerative change at L4-L5. IMPRESSION: 1. Moderate left hydronephrosis and proximal hydroureter with associated perinephric and perirenal st randing due to an obstructing 4 mm stone within the proximal ureter. 2. Hepatomegaly and hepatic steatosis. 3. Colonic diverticulosis. 4. Stable bilateral adrenal nodules. The interval stability favors benign adenomas. MRI can be perfor med for catheterization if there is clinical concern. 5. Simple appearing right renal cyst. Follow up is not routinely performed for simple cysts. Electronically signed by: Raven Jha MD (03/09/2021 2:09 PM) [id number]
[2021-03-09] MEDS ORDERED: IV NORMAL SALINE 1000ML BAG 1,000 ML IV ONE (15:00)
[2021-03-09] MEDS ORDERED: cefTRIAXone IV Push 1 GM VIAL. IVP ONE (15:00)
[2021-03-09 15:03] VITALS: BP 134/58
[2021-03-09] MEDS ORDERED: ONDA4TAB12 PO (15:24)
[2021-03-09] MEDS ORDERED: HYDR-2765 PO (15:24)
[2021-03-09] MEDS ORDERED: CIPR500T94 PO (15:24)
[2021-03-09] MEDS ORDERED: TAMS0.4C97 PO (15:24)
--- NOTE | 2021-03-09 16:21 | EKG ---
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
== END 2021-03-09 15:35 | disposition home or self-care (01) ==
LOC: ER 12:42
DX: N10 Acute pyelonephritis (principal); N13.2 Hydronephrosis with renal and ureteral calculous obstruction; D72.829 Elevated white blood cell count, unspecified; I48.91 Unspecified atrial fibrillation; J45.909 Unspecified asthma, uncomplicated; E11.9 Type 2 diabetes mellitus without complications; E78.00 Pure hypercholesterolemia, unspecified; I10 Essential (primary) hypertension; Z87.442 Personal history of urinary calculi
CPT/HCPCS: 36415; 74176; 80053; 81001; 85007; 85025; 87086; 93005; 96361; 96374; 96375; 99285; J0696; J2270; J2405; J3490; J7030